=== PATIENT | female | born 1965 ===

== ENCOUNTER 2016-12-09 19:59 | Emergency (ER) | payer OTHER, MEDICAID ==
[2016-12-09 20:13] VITALS: RESP 16
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
[2016-12-09 21:06] VITALS: BP 116/80; PULSE 82; TEMP 98; O2SAT 98
--- NOTE | 2016-12-10 10:52 | RAD ---
PROCEDURE: Cervical spine dated 12/09/2016 Note that the examination is limited due to partial obscuration of the odontoid by overlying incisor teeth in the open-mouth projection HISTORY: Pain. COMPARISON: None. FINDINGS: BONES: Alignment maintained. No fracture. Dens Intact. DISC SPACES: Disc space heights are relatively maintained. Small marginal anterolateral osteophytes seen at several levels. SOFT TISSUES: Normal. No prevertebral soft tissue swelling. OTHER FINDINGS: None. IMPRESSION: Limited study as above. No acute compression fractures no retropulsed fragments. Small marginal anterior osteophytes seen at several disc space levels. . If symptoms persist or occult fracture suspected clinically recommend followup CT scan of the cervical spine.
== END 2016-12-09 21:10 | disposition home or self-care (01) ==
LOC: C.ER 19:59
DX: S13.4XXA Sprain of ligaments of cervical spine, initial encounter (principal); V49.9XXA Car occupant (driver) (passenger) injured in unspecified traffic accident, initial encounter